=== PATIENT | female | born 1980 | race African-American/Black ===

== ENCOUNTER → 2017-05-14 07:31 | Outpatient (CLI) | payer MEDICAID ==
[2015-03-24 06:02] VITALS: BMI 20.8
[~2017-05-14 07:31] MED LIST: HYDROCODONE-APA1 TAB PO; PRILOSEC20 MG PO; ZANAFLEX4 MG PO
== END | disposition home or self-care (01) ==
LOC: D.RAD 07:31
DX: K90.0 Celiac disease (principal); R11.2 Nausea with vomiting, unspecified

== ENCOUNTER → 2018-03-20 09:42 | Outpatient (CLI) | payer MEDICAID ==
[2015-03-24 06:02] VITALS: BMI 20.8
== END | disposition home or self-care (01) ==
LOC: D.CT 09:42
DX: R10.31 Right lower quadrant pain (principal)

== ENCOUNTER 2019-06-12 04:48 | Day surgery (SDC) | payer BC, OTHER ==
[2019-06-11 12:07] LABS: BASOPHILS 0.5 % (0-2); EOSINOPHILS 1.2 % (0-7); HEMATOCRIT 38.6 % (36.0-48.0); HEMOGLOBIN 14.1 g/dL (12-16); IMMATURE GRANULOCYTES 0.2 % (0-5); LYMPHOCYTES 37.3 % (15-50); MCH 27.9 pg (26.0-34.0); MCHC 36.5 g/dL (31.0-37.0); MCV 76.3 fL (80.0-100.0); MEAN PLATELET VOLUME 10.1 fL (7.4-10.4); MONOCYTES 6.9 % (2-11); NEUTROPHILS 53.9 % (40-80); PLATELET COUNT 240 10x3/uL (130-400); RBC 5.06 10x6/uL (4.00-5.40); RDW 14.1 % (11.5-14.5); WBC 6.1 10x3/uL (4.8-10.8)
[2019-06-11 12:15] LABS: HCG URINE NEGATIVE (NEGATIVE)
[~2019-06-12] VITALS: Ht 167.6 cm; Wt 62.1 kg
--- NOTE | ~2019-06-12 | OP ---
PATIENT NAME: HALLE MONTANA MEDICAL RECORD: [id number] :78 LOCATION:D.OPS ADMISSION DATE: SURGEON: SEBASTIAN BOOKER MD DATE OF OPERATION: 06/12/2019 PREOPERATIVE DIAGNOSES: 1. Chronic pelvic pain. 2. Epidermal inclusion cyst. POSTOPERATIVE DIAGNOSES: 1. Endometriosis. 2. Epidermal inclusion cyst. PROCEDURES: 1. Diagnostic laparoscopy. 2. Fulguration of endometriosis. 3. Bilateral salpingectomy. 4. Excision of epidermal inclusion cyst. SURGEON: Sebastian Booker MD CASHIER CLERK: Warren Carbone. ANESTHESIA: General. FINDINGS: Uterus was unremarkable. Both tubes are interrupted bilaterally. Active endometriosis was apparent attached to the right tube medially. What was visualized of the abdominal anatomy and the rest of the pelvic anatomy was unremarkable. Less than 1 cm epidermal inclusion cyst at the left inguinal fold. SPECIMENS REMOVED: 1. Bilateral tubes. 2. Skin biopsy and epidermal inclusion cyst. SPECIMEN DISPOSITION: All specimens to pathology. ESTIMATED BLOOD LOSS: Minimal. FLUIDS: 800 cc of lactated Ringer's. URINE OUTPUT: Quantity sufficient void prior to this procedure. COMPLICATIONS: None. DRAINS: None. INDICATIONS: The patient is a 39-year-old female with chronic pelvic pain. The patient also has an epidermal inclusion cyst. She wishes to have addressed. The patient desires removal of both tubes for decreased ovarian cancer risk. The patient was consented for diagnostic laparoscopy, bilateral salpingectomy and removal of epidermal inclusion cyst and all indicated procedures. DESCRIPTION OF PROCEDURE: After informed consent was assured, the patient was taken to the operating room where anesthetic was obtained and she was placed in OPERATIVE REPORT [id number] [facility]. After prepping and draping, the infraumbilical incision site was incised and a trocar inserted under direct visualization. Pneumoperitoneum was now developed and with the patient in Trendelenburg position accessory ports were placed in the midline in the right lower quadrant. Through the midline port, graspers inserted and the right tube was elevated. Using a Thunderbeat coagulation cutter, the tube was removed. The endometrial implants located on the inferior margin of the right tube was removed and the portion remains on the antimesenteric side was desiccated. The tube was removed. The left tube was now elevated, starting medially the tube was removed from its attachments to the uterus and was undermined across to the ovary. The left tube was now removed. All operative sites inspected and found to be hemostatic. The accessory trocars were removed under direct visualization and primary trocar removed after release of pneumoperitoneum. The legs are now positioned for removal of the inclusion cyst. Inspection of the left inguinal fold reveals less than 1 cm inclusion cyst. This was injected with Marcaine and elevated with Adson pickups. Using a #15 blade, the elliptical incision was made about the base of this and it was removed in its entirety. Bleeding vessels cauterized at the base and the defect was now reapproximated with 3-0 chromic. Dermabond was applied to this and the incisions on the abdomen. Sponge, lap, and needle counts were correct times 2. TRANSINT:[id number] Voice Confirmation ID: [id number] DOCUMENT ID: [id number] SEBASTIAN BOOKER MD CC: [id number] DICTATION DATE: 06/12/19807 AUTOMOTIVE ARTIST: 06/12/19827 [facility] [address] [id number]
[~2019-06-12 04:48] MED LIST changes: +ALBUTEROL AER HFA INH; +CARAFATE1 G PO; +DEPAKENE250 MG PO; +PAXIL30 MG PO; +TYLENOL #4 W/CO1 TAB PO; +ZOFRAN4 MG PO
[2019-06-12 06:11] VITALS: BP 128/85; Ht 167.6 cm; Wt 62.1 kg
[2019-06-12 06:44] LABS: HCG URINE NEGATIVE (NEGATIVE)
--- NOTE | 2019-06-12 09:00 | NUR ---
REC'D FROM RR. NO FAMILY AT BEDSIDE. JUICE BROUGHT TO PT. DROWSY. AROUSES EASILY. SURGICAL SITES WITH DERMABOND DI TO ABDOMEN AND LEFT GROIN.
--- NOTE | 2019-06-12 09:30 | NUR ---
FL DIET SERVED.
--- NOTE | 2019-06-12 10:00 | NUR ---
TOLERATED FL DIET. NO URGE TO VOID. IV FLUID INCREASED.
--- NOTE | 2019-06-12 10:30 | NUR ---
DRINKING FLUIDS. NO URGE TO VOID.
--- NOTE | 2019-06-12 11:00 | NUR ---
C/O ITCHING. ASKING FOR BENADRYL. NO URGE TO VOID. ENCOURAGED TO GO TO BATHROOM AND SEE IF MOVEMENT MIGHT HELP WITH URINATION. ORDER REC'D FOR BENADRYL 25MG IV X1.
--- NOTE | 2019-06-12 11:15 | NUR ---
PT BACK IN BED. RELATED SHE DID NOT VOID. IV BENADRYL ADMINISTERED PER ORDERS.
--- NOTE | 2019-06-12 12:00 | NUR ---
STILL RELATES NO URGE TO VOID. PUDDING AND ICE CREAM BROUGHT TO PATIENT.
--- NOTE | 2019-06-12 12:35 | NUR ---
UP TO BATHROOM AND VOIDED WITHOUT DIFFICULTY.
--- NOTE | 2019-06-12 12:44 | NUR ---
1235- DISCONTINUED IV FROM LEFT HAND WITH CATH INTACT, APPLIED BANDAID, NO BLEEDING OR HEMATOMA AT SITE. DISPOSED INTO SHARPS. TOLERATED WELL WITHOUT COMPLAINTS
--- NOTE | 2019-06-12 12:55 | NUR ---
IV DC'D WITH CATHETER INTACT. WRITTEN AND VERBAL DC INST. GIVEN TO PT ALONG WITH RX. VERBALIZED UNDERSTANDING.
--- NOTE | 2019-06-12 13:20 | NUR ---
DC'D HOME WITH FAMILY VIA PRIVATE VEHICLE. STABLE AT TIME OF DC.
== END 2019-06-12 13:20 | disposition home or self-care (01) ==
LOC: D.OPS 04:48 → D.PAN 07:00 → D.OPS 12:00
PROVIDERS: ATTEND Obstetrics & Gynecology
DX: N80.2 Endometriosis of fallopian tube (principal); L72.0 Epidermal cyst; G89.29 Other chronic pain; R10.2 Pelvic and perineal pain; Z01.812 Encounter for preprocedural laboratory examination

== ENCOUNTER → 2020-06-14 23:43 | Outpatient (CLI) | payer BC, OTHER ==
[2019-06-12 06:11] VITALS: BMI 22.1
== END | disposition home or self-care (01) ==
LOC: D.MAMMO 10:30
PROVIDERS: ATTEND Obstetrics & Gynecology
DX: N63.21 Unspecified lump in the left breast, upper outer quadrant (principal)